=== PATIENT | male | born 1990 | race Caucasian/White ===

== ENCOUNTER 2025-05-23 12:13 | Outpatient (CLI) | payer OTHER ==
[~2025-05-23 12:13] MED LIST: 0.9 % Sodium Chloride 20 ML, Lidocaine 1% PF 5 ML, Iopamidol 5 ML, EPINEPHrine 0.1 MG FS SCH; Gadobenate Dimeglumine 2 ML, Sodium Chloride 0.9% 250 ML 10 ML, Iopamidol 8 ML, Lidocai... FS SCH
[2025-05-23] MEDS ORDERED: Gadobenate Dimeglumine 2 ML, Sodium Chloride 0.9% 250 ML 10 ML, Iopamidol 8 ML, Lidocai... FS SCH (12:15)
[2025-05-23] MEDS ORDERED: Iopamidol 300 61% 30 ML VIAL ONE (14:15)
[2025-05-23] MEDS ORDERED: Gadobenate 529 MG/ML (10ML SDV) ONE (14:15)
== END 2025-05-23 12:14 | disposition home or self-care (01) ==
LOC: CSHRAD 12:13
PROVIDERS: ATTEND Student in an Organized Health Care Education/Training Program
DX: S43.432A Superior glenoid labrum lesion of left shoulder, initial encounter (principal)
CPT/HCPCS: 23350; 77002; A9577; J0166; J7050; Q9967